=== PATIENT | male | born 1975 | race Caucasian/White ===

== ENCOUNTER 2020-03-25 23:38 | Emergency (ER) | payer SELFPAY ==
[~2020-03-25] VITALS: Ht 172.7 cm; Wt 79.0 kg
--- NOTE | 2020-03-26 00:20 | NUR ---
pt refused head michelle and did not want staff touching the top of his head. pt through out visit continiued to curse at staff and make racial remarks
[2020-03-26] MEDS ORDERED: DIPH,PERTUSS(ACELL),TET VAC/PF 0.5 ML IM-VACC ONE (00:30)
--- NOTE | 2020-03-26 01:02 | NUR ---
pt refused tdap shot and told public relations writer "to shove it in your pee hole"
[2020-03-26 01:08] VITALS: BP 132/87
== END 2020-03-26 01:10 | disposition home or self-care (01) ==
LOC: ED 03-26 01:00
DX: S01.01XA Laceration without foreign body of scalp, initial encounter (principal); F16.10 Hallucinogen abuse, uncomplicated; G89.11 Acute pain due to trauma; F17.210 Nicotine dependence, cigarettes, uncomplicated; Z72.9 Problem related to lifestyle, unspecified; Y93.89 Activity, other specified; Y92.410 Unspecified street and highway as the place of occurrence of the external cause; Y99.8 Other external cause status
CPT/HCPCS: 99283

== ENCOUNTER 2020-07-07 00:42 | Emergency (ER) | payer MEDICAID ==
[~2020-07-07] VITALS: Ht 172.7 cm; Wt 82.7 kg
--- NOTE | 2020-07-07 01:20 | NUR ---
TASK RN PT NOW BACK FROM [facility]
[2020-07-07 02:19] VITALS: BP 116/80
--- NOTE | 2020-07-07 02:20 | NUR ---
D/c instructions discussed with pt. Verbalizes understanding. States he will return to ED with worsening sx. Taxi voucher to hotel pt states he is staying at provided. Pt ambulating independently, steady gait
== END 2020-07-07 02:21 | disposition home or self-care (01) ==
LOC: ED 01:27
DX: S06.0X0A Concussion without loss of consciousness, initial encounter (principal); F17.200 Nicotine dependence, unspecified, uncomplicated; Z72.9 Problem related to lifestyle, unspecified; X58.XXXA Exposure to other specified factors, initial encounter; Y93.89 Activity, other specified; Y92.89 Other specified places as the place of occurrence of the external cause; Y99.8 Other external cause status
CPT/HCPCS: 70450; 99284

== ENCOUNTER 2020-07-08 01:29 | Emergency (ER) | payer MEDICAID ==
[~2020-07-08] VITALS: Ht 172.7 cm; Wt 82.1 kg
[2020-07-08 01:33] VITALS: BP 129/78
[2020-07-08] MEDS ORDERED: IBUPROFEN 800 MG TABLET PO ONE (02:00)
[2020-07-08] MEDS ORDERED: IBUPROFEN 800 MG TABLET ONE (02:06)
== END 2020-07-08 02:43 | disposition home or self-care (01) ==
LOC: ED 02:11
DX: S06.0X0A Concussion without loss of consciousness, initial encounter (principal); F17.210 Nicotine dependence, cigarettes, uncomplicated; Z76.5 Malingerer [conscious simulation]; Z72.9 Problem related to lifestyle, unspecified; V00.138A Other skateboard accident, initial encounter; Y93.89 Activity, other specified; Y92.89 Other specified places as the place of occurrence of the external cause; Y99.8 Other external cause status
CPT/HCPCS: 99282; 99406

== ENCOUNTER 2020-09-07 04:43 | Emergency (ER) | payer MEDICAID ==
[~2020-09-07] VITALS: Ht 182.9 cm; Wt 80.0 kg
[2020-09-07 04:49] VITALS: BP 128/72
--- NOTE | 2020-09-07 04:52 | NUR ---
bib resma for SI. pt states he has been feeling suicidal since aound 1800 last night. plan is to drink alcohol until he dies. pt has been off of medications for 3 days. pt was also discharged from [facility] 3 days ago. pt unkempt and malodorous. pt calm and cooperative. pt in a secure room with sitter at doorway for frequent checks. all pt belongings placed into bags, labeled with pt stickers and put in locker.
[2020-09-07 05:26] LABS: AMPHETAMINE SCREEN, URINE Positive (Negative); BARBITURATE SCREEN, URINE Negative (Negative); BENZODIAZEPINE SCREEN, URINE Negative (Negative); CANNABINOID SCREEN, URINE Negative (Negative); COCAINE SCREEN, URINE Negative (Negative); METHADONE SCREEN, URINE Negative (Negative); OPIATE SCREEN, URINE Negative (Negative)
[2020-09-07 05:26] LABS: BASOPHILS % (AUTO) 1 % (0-1); EOSINOPHILS % (AUTO) 5 % (1-7); LYMPHOCYTES % (AUTO) 13 % (22-44); MEAN CORPUSCULAR HEMOGLOBIN 21.3 pg (27.5-34.5); MEAN CORPUSCULAR HGB CONC 32.8 g/dL (33.2-36.2); MEAN PLATELET VOLUME 6.5 fL (7.4-10.4); MONOCYTES % (AUTO) 7 % (2-9); NEUTROPHILS % (AUTO) 75 % (42-75); PLATELET COUNT 676 x10^3/uL (130-400); RED CELL DISTRIBUTION WIDTH 16.8 % (9.4-14.8)
[2020-09-07 05:27] LABS: MD NO
[2020-09-07 05:33] LABS: ALANINE AMINOTRANSFERASE 18 U/L (12-78); ALBUMIN 3.5 g/dL (3.4-5.0); ANION GAP 4 mmol/L (5-15); CALCIUM 8.5 mg/dL (8.5-10.1); CHLORIDE 101 mmol/L (98-107); CREATININE 0.76 mg/dL (0.7-1.3)
[2020-09-07 05:37] LABS: SALICYLATE LEVEL < 1.7 mg/dL (2.8-20.0)
[2020-09-07 05:39] LABS: ALKALINE PHOSPHATASE 67 U/L (45-117); BILIRUBIN,TOTAL 0.8 mg/dL (0.2-1.0); TOTAL PROTEIN 7.2 g/dL (6.4-8.2)
--- NOTE | 2020-09-07 06:13 | NUR ---
pt resting on gurney. eyes closed, respirations even and unlabored. sitter at doorway for frequent checks. telepsych computer at bedside, awaiting eval.
--- NOTE | 2020-09-07 07:06 | NUR ---
report to anival brown
--- NOTE | 2020-09-07 07:09 | NUR ---
Bedside report from BRIANNE Foley. Pt resting in bed, awaiting evaluation.
--- NOTE | 2020-09-07 10:27 | NUR ---
Pt in shower, sitter at side. Full linen change provided. Awaiting psych QUALITY TESTER eval.
--- NOTE | 2020-09-07 11:32 | NUR ---
Psych VETERINARY ATTENDANT at bedside for eval.
[2020-09-07] MEDS ORDERED: RISPERIDONE 0.5 MG TABLET PO ONE (12:00)
[2020-09-07] MEDS ORDERED: BUPROPION 75 MG TABLET PO SCH (12:00)
--- NOTE | 2020-09-07 12:32 | NUR ---
This RN at bedside when pt was medicated. Pt stuck out tongue to show he swallowed the pills. Pt then went immediately to the bathroom. Per sitter pt was banging around in the bathroom "stupid bitch" in reference to the sink that wasn't working.
--- NOTE | 2020-09-07 12:58 | NUR ---
Awaiting social work consult.
--- NOTE | 2020-09-07 13:20 | NUR ---
Social work has seen this pt. Pt placed for D/C.
== END 2020-09-07 13:22 | disposition home or self-care (01) ==
LOC: ED 05:54
DX: F31.9 Bipolar disorder, unspecified (principal); R45.851 Suicidal ideations; Z76.0 Encounter for issue of repeat prescription
CPT/HCPCS: 36415; 80053; 80299; 80307; 80320; 80329; 85025; 99284; G0480

== ENCOUNTER 2020-09-07 17:48 | Emergency (ER) | payer MEDICAID ==
[~2020-09-07] VITALS: Ht 172.7 cm; Wt 85.0 kg
--- NOTE | 2020-09-07 18:12 | NUR ---
TASK RN: THIS IS A 45 YO M BIB [facility]/ C/O SI/HI. PT REPORTS PLAN OF DRINKING HIMSELF TO AND/OR BEATING SOMEONE TO , NO PERSON SPECIFICALLY. DENIES ALCOHOL USE TODAY. PT HAS HX OF SCHIZOPHRENIA AND BIPOLAR, WAS UNABLE TO FILL RISPERIDONE OR WELLBUTRIN TODAY. PT BELONGINGS REMOVED FROM ROOM, PT IN GOWN, GARAGE DOORS DOWN AND SITTER OUTSIDE FOR SAFETY. PT PROVIDED URINAL AND EDUCATED ON NEED FOR URINE SAMPLE. PT PROVIDED W/ WARM BLANKET PER PT REQUEST. PT REQUESTING FOOD. RENNY MATHIAS. AWAITING ED EVAL.
--- NOTE | 2020-09-07 18:57 | NUR ---
Report to BRIANNE Beach. Pt sleeping, visible chest rise and fall.
[2020-09-07] MEDS ORDERED: LORazepam 1MG TABLET ONE (19:00)
[2020-09-07] MEDS ORDERED: OLANZAPINE 10 MG TABLET PO ONE (19:00)
[2020-09-07] MEDS ORDERED: OLANZAPINE 10 MG TABLET PO SCH (19:00)
[2020-09-07] MEDS ORDERED: LORazepam 1MG TABLET PO ONE (19:00)
[2020-09-07] MEDS ORDERED: OLANZAPINE 10 MG TABLET ONE (19:00)
[2020-09-07 19:23] VITALS: BP 134/77
== END 2020-09-07 19:25 | disposition home or self-care (01) ==
LOC: ED 18:22
DX: F41.1 Generalized anxiety disorder (principal); R44.0 Auditory hallucinations; Z72.9 Problem related to lifestyle, unspecified; F17.210 Nicotine dependence, cigarettes, uncomplicated; Z91.14 Patient's other noncompliance with medication regimen
CPT/HCPCS: 99283; 99406

== ENCOUNTER 2020-09-10 20:46 | Emergency (ER) | payer MEDICAID ==
[~2020-09-10] VITALS: Ht 172.7 cm; Wt 84.1 kg
[2020-09-10] MEDS: RISPERIDONE 0.5 MG TABLET PO ONE (21:00)
--- NOTE | 2020-09-10 21:01 | NUR ---
TASK RN: pt bib kathysa for si, states "i was planning to jump off a bridge and i was standing there ready to do it last night". [employer] called [employer] today. off meds x2 days, hearing voices, hx schizo. PT 12/01 BAGS PLACED IN LOCKER, CHANGED INTO GOWN AND HOSPITAL UNDERWEAR, UA OBTAINED. PT RESTING ON GURNEY, NAD, SI PRECAUTIONS IN PLACE, ROOM SECURED. BS REPORT TO BENTLEY DECKER
[2020-09-10] MEDS ORDERED: BUPR150T73 PO (21:03)
[2020-09-10] MEDS ORDERED: RISP0.5T62 PO (21:03)
[2020-09-10 21:23] LABS: AMPHETAMINE SCREEN, URINE Negative (Negative); BARBITURATE SCREEN, URINE Negative (Negative); BENZODIAZEPINE SCREEN, URINE Negative (Negative); CANNABINOID SCREEN, URINE Negative (Negative); COCAINE SCREEN, URINE Negative (Negative); METHADONE SCREEN, URINE Negative (Negative); OPIATE SCREEN, URINE Negative (Negative)
[2020-09-10] MEDS ORDERED: BUPROPION 75 MG TABLET PO ONE (21:30)
[2020-09-10 21:48] LABS: BASOPHILS % (AUTO) 2 % (0-1); EOSINOPHILS % (AUTO) 5 % (1-7); LYMPHOCYTES % (AUTO) 26 % (22-44); MEAN CORPUSCULAR HEMOGLOBIN 21.6 pg (27.5-34.5); MEAN CORPUSCULAR HGB CONC 32.8 g/dL (33.2-36.2); MEAN PLATELET VOLUME 6.1 fL (7.4-10.4); MONOCYTES % (AUTO) 9 % (2-9); NEUTROPHILS % (AUTO) 57 % (42-75); PLATELET COUNT 613 x10^3/uL (130-400); RED BLOOD COUNT 3.55 x10^6/uL (4.38-5.82)
[2020-09-10 21:49] LABS: ANION GAP 10 mmol/L (5-15); CHLORIDE 107 mmol/L (98-107); CREATININE 0.79 mg/dL (0.7-1.3)
[2020-09-10 21:50] LABS: SALICYLATE LEVEL < 1.7 mg/dL (2.8-20.0)
[2020-09-10 21:51] LABS: MD NO
[2020-09-11] MEDS: RISPERIDONE 0.5 MG TABLET PO ONE (00:19)
--- NOTE | 2020-09-11 00:19 | NUR ---
pt medicated per mar
--- NOTE | 2020-09-11 00:57 | NUR ---
BREAK RN: PT MOVED FROM [facility] TO HOSPITAL BED AT THIS TIME. RESTING COMFORTABLY, DENIES ADDITIONAL NEEDS AT THIS TIME, EVEN AND UNLABORED RESPIRATIONS, ROOM SECURED, SITTER IN LINE OF SIGHT. ETTA.
--- NOTE | 2020-09-11 01:40 | NUR ---
PSYCH PACKET FAXED: [facility], [facility], [facility]
--- NOTE | 2020-09-11 02:00 | NUR ---
[facility] nurse down to evaluate patient.
--- NOTE | 2020-09-11 03:30 | NUR ---
Resp easy and unablored. Patient offers no compalints at this. Sitter present
--- NOTE | 2020-09-11 05:03 | NUR ---
Patient up to use restroom, steady on feet. VSS Sitter present.
--- NOTE | 2020-09-11 06:12 | NUR ---
Patient noted to be resting. Resp easy and unlabored. Sitter present
--- NOTE | 2020-09-11 06:42 | NUR ---
Spoke with [facility] regarding accepting, was told they would call back after talking to the doctor regarding accepting
--- NOTE | 2020-09-11 07:00 | NUR ---
RECEIVED REPORT FROM [facility]. PT SLEEPING CALMLY ON GURNEY, NAD WITH EQUAL CHEST RISE/FALL, NO NEEDS AT THIS TIME, PT IN SAFE ENVIRONMENT, SITTER IN VIEW.
[2020-09-11 08:01] VITALS: BP 147/76
--- NOTE | 2020-09-11 08:01 | NUR ---
PT UPRIGHT ON HOSPITAL BED AWAKE, CALM & COOPERATIVE, WATCHING TV & EATING BREAKFAST, RESPONDS TO STAFF QUESTIONS, NAD, COMFORT MEASURES PROVIDED, PT REMAINS IN SAFE ENVIRONMENT, SITTER IN VIEW.
--- NOTE | 2020-09-11 08:53 | NUR ---
NIKKIESA given discharge instructions and they have confirmed that they understand the instructions. Patient ambulatory with steady gait & left with all personal belongings (4 bags).
== END 2020-09-11 09:05 ==
LOC: ED 23:07
DX: R45.851 Suicidal ideations (principal); D50.9 Iron deficiency anemia, unspecified; F25.9 Schizoaffective disorder, unspecified; F17.210 Nicotine dependence, cigarettes, uncomplicated
CPT/HCPCS: 36415; 80048; 80299; 80307; 80320; 80329; 82040; 85025; 99285; 99406; G0480